=== PATIENT | female | born 1970 | race Caucasian/White ===

== ENCOUNTER 2017-03-16 15:36 | Emergency (ER) | payer MEDICAID ==
[2017-03-16 17:00] VITALS: TEMP 98.2
--- NOTE | 2017-03-16 18:13 | EDPHY ---
H & P Time Seen by Provider: 03/16/17 17:44 HPI/ROS: CHIEF COMPLAINT: Left flank pain, increased urinary frequency HISTORY OF PRESENT ILLNESS: 47-year-old female complaining of 1 week of increased urinary frequency, dysuria , development of left flank pain in the past 24 hours. No fever or chills. No nausea or vomiting. No abdominal pain. No abnormal vaginal discharge. No the vaginal bleeding. No flu-like symptoms. Bowel movements normal. No melena or hematochezia. Full oral intake. PRIMARY CARE PROVIDER: the [facility] REVIEW OF SYSTEMS: A ten point review of systems was performed and is negative with the exception of the items mentioned in the HPI PAST MEDICAL & SURGICAL HISTORY: No history of immunocompromised/suppressed condition SOCIAL HISTORY: Nonsmoker PHYSICAL EXAM (Prior to examination, patient consented to physical exam, hands were washed and my usual and customary physical exam procedures followed) 1) GENERAL: Well-developed, well-nourished, alert and oriented. Appears to be in no acute distress. 2) HEAD: Normocephalic, atraumatic 3) HEENT: Pupils equal, round, reactive to light bilaterally. Sclera anicteric. Nasopharynx, oropharynx, clear, no lesions. Moist mucous membranes 4) NECK: Full range of motion, no meningeal signs. 5) LUNGS: Clear auscultation bilaterally, no wheezes, no rhonchi, no retractions. 6) HEART: Regular rate and rhythm, no murmur, no heave, no gallop. 7) ABDOMEN: No guarding, no rebound, no focal tenderness, negative McBurney's, negative Lopez's, negative Rovsing's, negative peritoneal sign, I am unable to elicit any abdominal pain on exam 8) MUSCULOSKELETAL: Moving all extremities, no focal areas of tenderness, no obvious trauma. No peripheral edema or discoloration. 9) BACK: positive left CVA tenderness, no midline vertebral tenderness, no fluctuance, no step-off, no obvious trauma, no visual or palpable abnormality. 10) SKIN: No rash, no petechiae. 11) Psychiatric: Patient is oriented X 3, there is no agitation. DIFFERENTIAL DIAGNOSIS: in no particular order including but not limited to pyelonephritis, nephrolithiasis, perinephric abscess, diverticulitis, ectopic Smoking Status: Never smoked Constitutional: Initial Vital Signs Temperature (C) 36.8 C 03/16/17 16:57 Heart Rate 81 03/16/17 16:57 Respiratory Rate 17 03/16/17 16:57 Blood Pressure 126/94 H 03/16/17 16:57 O2 Sat (%) 97 03/16/17 16:57 Allergies/Adverse Reactions: amoxicillin Allergy (Verified 03/16/17 16:56) Penicillins Allergy (Verified 05/30/13 11:02) sulfamethoxazole [From Bactrim] Allergy (Verified 12/11/13 09:55) trimethoprim [From Bactrim] Allergy (Verified 12/11/13 09:55) Home Medications: Medication Instructions Recorded Omeprazole 05/30/13 levOFLOXACIN [levAQUIN (*)] 750 mg PO DAILY #5 tab 03/16/17 MDM/Departure - [facility] ED Course/Re-evaluation: This patient has been re-evaluated with serial examinations. She appears well, normal vital signs, afebrile, abdomen which remained soft no guarding no rebound no McBurney's point pain. I think that acute surgical abdominal pathology is less than likely in this patient at this time, doubt acute appendicitis, doubt diverticulitis in the absence of any abdominal pain including right lower or left lower quadrant and no peritoneal sign. Doubt urosepsis. Doubt perinephric abscess. High clinical suspicion for pyelonephritis. I think she can be treated on outpatient basis. Her urine has been cultured. Started on Levaquin. Usual and customary urinary precautions and instructions provided - Depart Disposition: Home, Routine, Self-Care Clinical Impression: Pyelonephritis Condition: Good Instructions: Kidney Infection (ED), Flank Pain (ED) Additional Instructions: Return to the ER immediately if you experience fevers/chills, flu like symptoms , inability to tolerate oral intake, nausea or vomiting, or any other symptoms that concern you. Prescriptions: levOFLOXACIN [levAQUIN (*)] 750 mg PO DAILY #5 tab Referrals: Eric Saldana MD [Primary Care Provider] - 03/19/17
[2017-03-16 18:19] LABS: COLOR YELLOW; LEUKOCYTE ESTERASE,URINE NEGATIVE (NEGATIVE); NITRITE,URINE NEGATIVE (NEGATIVE)
[2017-03-16 18:28] LABS: MUCUS 1+ /lpf (NONE-1+)
[2017-03-16 18:57] VITALS: BP 140/78; PULSE 110; RESP 18; O2SAT 94
== END 2017-03-16 18:57 | disposition home or self-care (01) ==
DX: N12 Tubulo-interstitial nephritis, not specified as acute or chronic (principal)

== ENCOUNTER → 2017-03-22 | Outpatient (CLI) | payer MEDICAID | LOC: FIMAGING 13:24 | PROVIDERS: ATTEND Physician Assistant Medical | DX: N20.0 Calculus of kidney (principal) ==

== ENCOUNTER → 2017-07-11 | Outpatient (CLI) | payer MEDICAID | LOC: FIMAGING 12:49 | PROVIDERS: ATTEND Family Medicine | DX: Z12.31 Encounter for screening mammogram for malignant neoplasm of breast (principal) ==

== ENCOUNTER → 2018-08-13 | Outpatient (CLI) | payer MEDICAID | LOC: FIMAGING 10:12 | PROVIDERS: ATTEND Family Medicine | DX: Z12.31 Encounter for screening mammogram for malignant neoplasm of breast (principal) ==